=== PATIENT | male | born 1960 | race Caucasian/White ===

== ENCOUNTER 2021-01-13 11:47 | Inpatient (IN) | payer OTHER ==
[~2021-01-13] VITALS: Ht 185.4 cm; Wt 101.0 kg
--- NOTE | 2021-01-13 11:47 | NUR ---
pt arived via [facility]. pt 60y/o male c/o cp that started last night. pt on BVM at 15L and placed on monitor, and Defib. Pt spontaneous VFib and shocked at 200J. Iv started x2 and IO in place.
--- NOTE | 2021-01-13 11:50 | NUR ---
See code sheet for medications and Intubation. Pt had mx episodes of VT and Vfib. pt labs drawn and EKG completed. Dr kerr intubated with 8.0 ET tube at 24cm at lip. ETCO2 confirmed. 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 Pharmacy at beside to dose medications per MD order.
[2021-01-13] MEDS ORDERED: HEPARIN 5,000 UNITS/ML, 1ML ONE (11:55)
[2021-01-13] MEDS ORDERED: HEPARIN 25,000 UNITS/250ML PMX 250 ML ONE (11:56)
[2021-01-13] MEDS ORDERED: FENTANYL PF 100 MCG/2ML ONE (12:03)
[2021-01-13] MEDS ORDERED: MIDAZOLAM 1 MG/ML, 5ML ONE (12:03)
[2021-01-13] MEDS ORDERED: BIVALIRUDIN 250 MG ONE ×2 (12:04→13:13)
[2021-01-13] MEDS ORDERED: LIDOCAINE 2%, 20ML ONE (12:04)
[2021-01-13] MEDS ORDERED: HEPARIN 1,000 UNITS/ML, 10ML ONE (12:04)
[2021-01-13 12:11] LABS: BASOPHILS % (AUTO) 1 % (0-1); EOSINOPHILS % (AUTO) 2 % (1-7); LYMPHOCYTES % (AUTO) 29 % (22-44); MEAN CORPUSCULAR HEMOGLOBIN 31.1 pg (27.5-34.5); MEAN CORPUSCULAR HGB CONC 33.9 g/dL (33.2-36.2); MEAN PLATELET VOLUME 9.1 fL (7.4-10.4); MONOCYTES % (AUTO) 9 % (2-9); NEUTROPHILS % (AUTO) 60 % (42-75); PLATELET COUNT 252 x10^3/uL (130-400); RED BLOOD COUNT 5.48 x10^6/uL (4.38-5.82); RED CELL DISTRIBUTION WIDTH 13.9 % (9.4-14.8)
--- NOTE | 2021-01-13 12:20 | NUR ---
Pt transported to cathlab on transport vent and monitor. pt last VS 136/103
--- NOTE | 2021-01-13 12:20 | NUR ---
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
[2021-01-13 12:23] LABS: INTERNATIONAL NORMALIZED RATIO 1.02 (0.93-1.1); PARTIAL THROMBOPLASTIN TIME 25 Seconds (25-31); PROTHROMBIN TIME 10.9 Seconds (9.6-11.5)
[2021-01-13] MEDS ORDERED: POTASSIUM CHLORIDE 40 MEQ in SODIUM CHLORIDE 0.9% 100 ML IV ONE (12:25)
[2021-01-13 12:29] LABS: TROPONIN I 0.121 ng/mL (0.000-0.045)
[2021-01-13] MEDS ORDERED: ETOMIDATE 40 MG/20 ML IVPush ONE (12:30)
[2021-01-13] MEDS ORDERED: AMIODARONE 50 MG/ML, 3ML IVPush ONE (12:30)
[2021-01-13] MEDS ORDERED: MAGNESIUM SULFATE 1 GM/2 ML IVPush ONE (12:30)
[2021-01-13] MEDS ORDERED: VECURONIUM 10 MG IVPush ONE (12:30)
[2021-01-13] MEDS ORDERED: AMIODARONE 450 MG in DEXTROSE 5% 241 ML IV PRN ×2 (12:30→13:30)
[2021-01-13] MEDS ORDERED: PROPOFOL 100 ML IV PRN (12:30)
[2021-01-13] MEDS ORDERED: PLEASE ENTER HEIGHT AND WEIGHT MC SCH (12:30)
[2021-01-13] MEDS ORDERED: AMIODARONE 50 MG/ML, 3ML ONE ×2 (12:55→13:24)
[2021-01-13] MEDS ORDERED: POTASSIUM CHLORIDE 40 MEQ in SODIUM CHLORIDE 0.9% 500 ML IV ONE (13:00)
[2021-01-13] MEDS ORDERED: AMIODARONE 150 MG in DEXTROSE 5% 100 ML IV ONE (13:00)
[2021-01-13] MEDS ORDERED: VECURONIUM 10 MG ONE (13:24)
[2021-01-13] MEDS ORDERED: PROPOFOL 10 MG/ML, 20ML ONE (13:24)
[2021-01-13] MEDS ORDERED: MAGNESIUM SULFATE 1 GM/2 ML ONE (13:24)
[2021-01-13] MEDS ORDERED: DEXTROSE 5%, 500ML ONE (13:24)
[2021-01-13] MEDS ORDERED: ETOMIDATE 20 MG/10 ML ONE (13:24)
[2021-01-13] MEDS ORDERED: LIDOCAINE PF 2%, 5ML ONE (13:24)
[2021-01-13] MEDS ORDERED: PHENYLEPHRINE 10 MG/ML ONE ×2 (13:27→13:47)
[2021-01-13] MEDS ORDERED: ENALAPRILAT 1.25 MG/ML, 2ML IVPush PRN (13:30)
[2021-01-13] MEDS ORDERED: NOREPINEPHRINE 8 MG in SODIUM CHLORIDE 0.9% 242 ML IV PRN (13:30)
[2021-01-13] MEDS ORDERED: PRASUGREL 10 MG TABLET PO SCH (13:30)
[2021-01-13] MEDS ORDERED: morphine SULFATE 10 MG/ML, 1ML IVPush PRN (13:30)
[2021-01-13] MEDS ORDERED: FENTANYL PF 1,000 MCG in SODIUM CHLORIDE 0.9% 80 ML IV PRN (13:30)
[2021-01-13] MEDS ORDERED: BISACODYL 10 MG SUPP PR PRN (13:30)
[2021-01-13] MEDS ORDERED: HEPARIN 5,000 UNITS/ML, 1ML IV ONE (13:30)
[2021-01-13] MEDS ORDERED: ONDANSETRON 2MG/ML, 2ML IVPush PRN (13:30)
[2021-01-13] MEDS ORDERED: VECURONIUM 10 MG IVPush PRN (13:30)
[2021-01-13] MEDS ORDERED: SODIUM PHOSPHATE 20 MMOL in SODIUM CHLORIDE 0.9% 250 ML IVPB PRN (13:30)
[2021-01-13] MEDS ORDERED: POLYETHYLENE GLYCOL 17 GM PACKET PO PRN (13:30)
[2021-01-13] MEDS ORDERED: HEPARIN 5,000 UNITS/ML, 1ML IV PRN (13:30)
[2021-01-13] MEDS ORDERED: MAGNESIUM SULFATE 1 GM in DEXTROSE 5% 100 ML IVPB PRN (13:30)
[2021-01-13] MEDS ORDERED: SODIUM CHLORIDE 0.9% 1,000 ML IV SCH (13:30)
[2021-01-13] MEDS ORDERED: LABETALOL 5MG/ML, 20ML IVPush PRN (13:30)
[2021-01-13] MEDS ORDERED: BUSPIRONE 10 MG TABLET NG SCH (13:30)
[2021-01-13] MEDS ORDERED: KSCALE TO 4.0 IV SCH (13:30)
[2021-01-13] MEDS ORDERED: HEPARIN 25,000 UNITS/250ML PMX 250 ML IV PRN (13:30)
[2021-01-13] MEDS ORDERED: ARTIFICIAL TEARS OINT 3.5 GM EACHEYE SCH (13:30)
[2021-01-13] MEDS ORDERED: OXYcodone IR 5MG TABLET PO PRN (13:30)
[2021-01-13] MEDS ORDERED: CALCIUM CHLORIDE 13.6 MEQ in SODIUM CHLORIDE 0.9% 100 ML IVPB PRN (13:30)
[2021-01-13] MEDS ORDERED: MIDAZOLAM 1 MG/ML, 2ML ONE (13:38)
[2021-01-13] MEDS ORDERED: PHENYLEPHRINE 100 MG in SODIUM CHLORIDE 0.9% 240 ML IV PRN ×2 (14:00)
[2021-01-13] MEDS ORDERED: PHENYLEPHRINE 50 MG in SODIUM CHLORIDE 0.9% 245 ML IV PRN (14:00)
[2021-01-13] MEDS: KSCALE TO 4.5 IV SCH ×2 (15:00→21:00)
[2021-01-13] MEDS: BIVALIRUDIN 250 MG in SODIUM CHLORIDE 0.9% 50 ML IV SCH ×2 (15:32→17:10)
[2021-01-13] MEDS ORDERED: PROPOFOL 100 ML IV ONE (15:54)
[2021-01-13 16:11] LABS: ANION GAP 5 mmol/L (5-15); CALCIUM 7.8 mg/dL (8.5-10.1); CHLORIDE 108 mmol/L (98-107); CREATININE 0.96 mg/dL (0.7-1.3)
[2021-01-13] MEDS: POTASSIUM CHLORIDE 40 MEQ in LACTATED RINGERS 1,000 ML IV SCH (16:52)
[2021-01-13] MEDS ORDERED: PARO20TA4 PO (17:36)
[2021-01-13] MEDS ORDERED: LISI-170 PO (17:36)
[2021-01-13] MEDS ORDERED: AMLO-211 PO (17:36)
[2021-01-13] MEDS ORDERED: FLEC50TA25 PO (17:36)
[2021-01-13] MEDS ORDERED: LEVO150T5 PO (17:36)
[2021-01-13] MEDS ORDERED: METO-282 PO (17:36)
[2021-01-13] MEDS ORDERED: RIVA20TA PO (17:36)
[2021-01-13] MEDS ORDERED: ATROPINE SYRINGE 0.1 MG/ML, 10ML ONE (18:00)
[2021-01-13 18:16] VITALS: BP 113/46
[2021-01-13] MEDS ORDERED: BIVALIRUDIN 250 MG in SODIUM CHLORIDE 0.9% 50 ML IV SCH (18:30)
[2021-01-13] MEDS: FENTANYL PF 1,000 MCG in SODIUM CHLORIDE 0.9% 80 ML IV PRN (20:07)
[2021-01-13] MEDS: PROPOFOL 100 ML IV PRN ×2 (20:08→22:40)
[2021-01-13] MEDS: FAMOTIDINE 20 MG/2 ML IVPush SCH (22:41)
[2021-01-13 23:10] LABS: MICROSCOPIC AUTO
[2021-01-14] MEDS: PROPOFOL 100 ML IV PRN ×6 (01:24→20:11)
[2021-01-14] MEDS: DOPAMINE/D5W PMX 250 ML IV PRN ×3 (02:01→16:57)
[2021-01-14] MEDS: KSCALE TO 4.5 IV SCH (03:00)
[2021-01-14 04:20] LABS: BASOPHILS % (AUTO) 0 % (0-1); EOSINOPHILS % (AUTO) 0 % (1-7); LYMPHOCYTES % (AUTO) 10 % (22-44); MEAN CORPUSCULAR HEMOGLOBIN 31.1 pg (27.5-34.5); MEAN CORPUSCULAR HGB CONC 34.3 g/dL (33.2-36.2); MEAN PLATELET VOLUME 9.2 fL (7.4-10.4); MONOCYTES % (AUTO) 10 % (2-9); NEUTROPHILS % (AUTO) 80 % (42-75); PLATELET COUNT 231 x10^3/uL (130-400); RED BLOOD COUNT 5.13 x10^6/uL (4.38-5.82); RED CELL DISTRIBUTION WIDTH 13.8 % (9.4-14.8)
[2021-01-14 04:30] LABS: ALBUMIN 3.1 g/dL (3.4-5.0); ANION GAP 6 mmol/L (5-15); CALCIUM 7.8 mg/dL (8.5-10.1); CHLORIDE 107 mmol/L (98-107)
[2021-01-14 04:50] LABS: ALANINE AMINOTRANSFERASE 84 U/L (12-78); ALKALINE PHOSPHATASE 77 U/L (45-117); BILIRUBIN,TOTAL 0.5 mg/dL (0.2-1.0); CREATININE 1.03 mg/dL (0.7-1.3); TOTAL PROTEIN 7.6 g/dL (6.4-8.2)
[2021-01-14] MEDS: POTASSIUM CHLORIDE 40 MEQ in LACTATED RINGERS 1,000 ML IV SCH (05:56)
[2021-01-14] MEDS: AMPICILLIN/SULBACTAM 3 GM in SODIUM CHLORIDE 0.9% 100 ML IV SCH ×3 (08:17→20:11)
[2021-01-14] MEDS: FENTANYL PF 1,000 MCG in SODIUM CHLORIDE 0.9% 80 ML IV PRN (08:17)
[2021-01-14] MEDS: SENNA/DOCUSATE TABLET PO SCH (08:18)
[2021-01-14] MEDS: PRASUGREL 10 MG TABLET PO SCH (08:18)
[2021-01-14] MEDS: FAMOTIDINE 20 MG/2 ML IVPush SCH ×2 (08:18→20:10)
[2021-01-14] MEDS ORDERED: LEVOTHYROXINE 100 MCG INJ IVPush SCH (09:00)
[2021-01-14] MEDS: LEVOTHYROXINE 100 MCG INJ IVPush SCH (09:29)
[2021-01-14] MEDS: INSULIN LISPRO 100 UNITS/ML, PEN SQ-INSULIN SCH ×3 (09:37→20:15)
--- NOTE | 2021-01-14 11:16 | NUR ---
TF recommendation when needed: Vital HP 55 ml/hr (ON propofol) 65 ml/hr (OFF propofol) Addendum: 01/14/21 at [address] Amended: Links added.
[2021-01-14] MEDS: ACETAMINOPHEN 325 MG TABLET PO PRN (20:33)
[2021-01-15] MEDS: PROPOFOL 100 ML IV PRN ×5 (00:36→20:12)
[2021-01-15] MEDS: AMPICILLIN/SULBACTAM 3 GM in SODIUM CHLORIDE 0.9% 100 ML IV SCH ×4 (02:44→21:51)
[2021-01-15] MEDS: DOPAMINE/D5W PMX 250 ML IV PRN ×2 (02:44→11:15)
[2021-01-15] MEDS: INSULIN LISPRO 100 UNITS/ML, PEN SQ-INSULIN SCH ×4 (03:04→21:30)
[2021-01-15 04:29] LABS: MEAN CORPUSCULAR HEMOGLOBIN 31.2 pg (27.5-34.5); MEAN CORPUSCULAR HGB CONC 34.3 g/dL (33.2-36.2); MEAN PLATELET VOLUME 9.1 fL (7.4-10.4); PLATELET COUNT 178 x10^3/uL (130-400); RED BLOOD COUNT 4.75 x10^6/uL (4.38-5.82)
[2021-01-15 04:33] LABS: ALANINE AMINOTRANSFERASE 77 U/L (12-78); ALBUMIN 2.8 g/dL (3.4-5.0); CALCIUM 8.2 mg/dL (8.5-10.1); CHLORIDE 109 mmol/L (98-107); CREATININE 0.88 mg/dL (0.7-1.3)
[2021-01-15 04:35] LABS: ALKALINE PHOSPHATASE 73 U/L (45-117); BILIRUBIN,TOTAL 0.6 mg/dL (0.2-1.0); TOTAL PROTEIN 7.2 g/dL (6.4-8.2)
[2021-01-15 04:43] LABS: ANION GAP 3 mmol/L (5-15)
[2021-01-15 04:54] LABS: <RBC MORPHOLOGY> NORMAL; BAND#(MANUAL) 0.65 x10^3/uL; BANDS%(MANUAL) 4 % (0-7); LYMPH#(MANUAL) 0.65 x10^3/uL (1-3.4); LYMPHS% (MANUAL) 4 % (22-44); MONOS#(MANUAL) 0.81 x10^3/uL (0.3-2.7); MONOS% (MANUAL) 5 % (2-9); MYELOCYTES# (MANUAL) 0.16 x10^3/uL (0-0); MYELOCYTES% (MANUAL) 1 % (0-0); SEG#(MANUAL) 13.93 x10^3/uL (1.8-6.8); SEGS% (MANUAL) 86 % (42-75)
[2021-01-15 04:55] LABS: <PLATELET ESTIMATE> ADEQUATE; <PLT MORPHOLOGY> NORMAL PLT MORPH; PMNS WITH VACUOLES 1+
[2021-01-15] MEDS ORDERED: ASPIRIN 81 MG TABLET EC PO SCH (06:00)
[2021-01-15] MEDS: FENTANYL PF 1,000 MCG in SODIUM CHLORIDE 0.9% 80 ML IV PRN (07:09)
[2021-01-15] MEDS: LACTATED RINGERS 1,000 ML IV SCH ×2 (08:42→21:52)
[2021-01-15] MEDS: LEVOTHYROXINE 100 MCG INJ IVPush SCH (09:10)
[2021-01-15] MEDS: SENNA/DOCUSATE TABLET PO SCH (09:22)
[2021-01-15] MEDS: ASPIRIN 81 MG TABLET CHEW PO SCH (09:22)
[2021-01-15] MEDS: HEPARIN 5,000 UNITS/ML, 1ML SQ SCH ×2 (09:22→18:15)
[2021-01-15] MEDS: PRASUGREL 10 MG TABLET PO SCH (09:22)
[2021-01-15] MEDS: FAMOTIDINE 20 MG/2 ML IVPush SCH ×2 (09:23→21:51)
[2021-01-15] MEDS: ACETAMINOPHEN 325 MG TABLET PO PRN (21:52)
[2021-01-16] MEDS: HEPARIN 5,000 UNITS/ML, 1ML SQ SCH ×3 (00:47→16:01)
[2021-01-16] MEDS: PROPOFOL 100 ML IV PRN ×7 (00:48→22:24)
[2021-01-16] MEDS: AMPICILLIN/SULBACTAM 3 GM in SODIUM CHLORIDE 0.9% 100 ML IV SCH ×4 (02:56→20:11)
[2021-01-16] MEDS: INSULIN LISPRO 100 UNITS/ML, PEN SQ-INSULIN SCH ×4 (03:00→20:18)
[2021-01-16] MEDS: FENTANYL PF 1,000 MCG in SODIUM CHLORIDE 0.9% 80 ML IV PRN ×2 (05:07→22:22)
[2021-01-16 05:31] LABS: BASOPHILS % (AUTO) 1 % (0-1); EOSINOPHILS % (AUTO) 1 % (1-7); LYMPHOCYTES % (AUTO) 14 % (22-44); MEAN CORPUSCULAR HEMOGLOBIN 31.7 pg (27.5-34.5); MEAN CORPUSCULAR HGB CONC 34.8 g/dL (33.2-36.2); MONOCYTES % (AUTO) 10 % (2-9); NEUTROPHILS % (AUTO) 75 % (42-75); PLATELET COUNT 153 x10^3/uL (130-400); RED BLOOD COUNT 4.24 x10^6/uL (4.38-5.82); RED CELL DISTRIBUTION WIDTH 13.9 % (9.4-14.8)
[2021-01-16 05:34] LABS: ALANINE AMINOTRANSFERASE 52 U/L (12-78); ALBUMIN 2.4 g/dL (3.4-5.0); ANION GAP 2 mmol/L (5-15); CALCIUM 7.7 mg/dL (8.5-10.1); CHLORIDE 109 mmol/L (98-107); CREATININE 0.69 mg/dL (0.7-1.3)
[2021-01-16 05:36] LABS: ALKALINE PHOSPHATASE 66 U/L (45-117); BILIRUBIN,TOTAL 0.6 mg/dL (0.2-1.0); TOTAL PROTEIN 6.7 g/dL (6.4-8.2)
[2021-01-16] MEDS: FAMOTIDINE 20 MG/2 ML IVPush SCH ×2 (09:03→20:12)
[2021-01-16] MEDS: QUETIAPINE 25MG TABLET NG SCH ×2 (09:03→20:12)
[2021-01-16] MEDS: PRASUGREL 10 MG TABLET PO SCH (09:03)
[2021-01-16] MEDS: LEVOTHYROXINE 100 MCG INJ IVPush SCH (09:03)
[2021-01-16] MEDS: SENNA/DOCUSATE TABLET PO SCH (09:03)
[2021-01-16] MEDS: ASPIRIN 81 MG TABLET CHEW PO SCH (09:03)
[2021-01-16] MEDS ORDERED: DEXTROSE 50%, 50ML SYRINGE ONE (15:55)
[2021-01-16] MEDS: LACTATED RINGERS 1,000 ML IV SCH (15:58)
[2021-01-16] MEDS ORDERED: DEXTROSE 50%, 50ML SYRINGE IVPush ONE (16:00)
[2021-01-16] MEDS ORDERED: DEXTROSE 4 GM TAB.CHEW PO PRN (16:30)
[2021-01-16] MEDS ORDERED: DEXTROSE 50%, 50ML SYRINGE IVPush PRN (16:30)
[2021-01-16] MEDS ORDERED: GLUCAGON 1 MG IM PRN (16:30)
[2021-01-16] MEDS: D5%-LACTATED RINGERS 1,000 ML IV SCH (17:56)
[2021-01-16] MEDS: SODIUM CHLORIDE FLUSH 10ML SYR IVF SCH (20:12)
[2021-01-17] MEDS: HEPARIN 5,000 UNITS/ML, 1ML SQ SCH ×3 (00:35→16:28)
[2021-01-17] MEDS: PROPOFOL 100 ML IV PRN ×6 (02:00→18:51)
[2021-01-17] MEDS: AMPICILLIN/SULBACTAM 3 GM in SODIUM CHLORIDE 0.9% 100 ML IV SCH ×4 (03:22→21:07)
[2021-01-17] MEDS: INSULIN LISPRO 100 UNITS/ML, PEN SQ-INSULIN SCH ×4 (03:29→21:30)
[2021-01-17 05:16] LABS: BASOPHILS % (AUTO) 1 % (0-1); EOSINOPHILS % (AUTO) 2 % (1-7); LYMPHOCYTES % (AUTO) 17 % (22-44); MEAN CORPUSCULAR HEMOGLOBIN 31.1 pg (27.5-34.5); MEAN CORPUSCULAR HGB CONC 34.1 g/dL (33.2-36.2); MONOCYTES % (AUTO) 9 % (2-9); NEUTROPHILS % (AUTO) 71 % (42-75); PLATELET COUNT 158 x10^3/uL (130-400); RED BLOOD COUNT 4.17 x10^6/uL (4.38-5.82)
[2021-01-17 05:26] LABS: ALBUMIN 2.1 g/dL (3.4-5.0); ANION GAP 5 mmol/L (5-15); CALCIUM 7.8 mg/dL (8.5-10.1); CHLORIDE 107 mmol/L (98-107)
[2021-01-17 05:29] LABS: ALANINE AMINOTRANSFERASE 45 U/L (12-78); ALKALINE PHOSPHATASE 72 U/L (45-117); BILIRUBIN,TOTAL 0.4 mg/dL (0.2-1.0); CREATININE 0.61 mg/dL (0.7-1.3); TOTAL PROTEIN 6.6 g/dL (6.4-8.2)
[2021-01-17] MEDS: D5%-LACTATED RINGERS 1,000 ML IV SCH ×2 (06:09→19:38)
[2021-01-17] MEDS ORDERED: POTASSIUM CHLORIDE 20 MEQ PACKET PO ONE (06:30)
[2021-01-17] MEDS: FAMOTIDINE 20 MG/2 ML IVPush SCH ×2 (08:46→21:07)
[2021-01-17] MEDS: LEVOTHYROXINE 100 MCG INJ IVPush SCH (08:46)
[2021-01-17] MEDS: QUETIAPINE 25MG TABLET NG SCH ×2 (08:46→21:08)
[2021-01-17] MEDS: PRASUGREL 10 MG TABLET PO SCH (08:46)
[2021-01-17] MEDS: SENNA/DOCUSATE TABLET PO SCH (08:46)
[2021-01-17] MEDS: SODIUM CHLORIDE FLUSH 10ML SYR IVF SCH ×2 (08:47→21:07)
--- NOTE | 2021-01-17 09:54 | NUR ---
Tube feeds: Vital HP: goal: 55 ml/hr on propofol, 65 ml/hr off propofol Addendum: 01/17/21 at [address] Amended: Links added.
[2021-01-17] MEDS: FENTANYL PF 1,000 MCG in SODIUM CHLORIDE 0.9% 80 ML IV PRN (12:29)
[2021-01-18] MEDS: HEPARIN 5,000 UNITS/ML, 1ML SQ SCH ×2 (00:05→09:05)
[2021-01-18] MEDS: PROPOFOL 100 ML IV PRN ×5 (00:06→21:01)
[2021-01-18] MEDS: AMPICILLIN/SULBACTAM 3 GM in SODIUM CHLORIDE 0.9% 100 ML IV SCH ×4 (02:00→21:04)
[2021-01-18] MEDS: INSULIN LISPRO 100 UNITS/ML, PEN SQ-INSULIN SCH ×4 (02:29→21:30)
[2021-01-18] MEDS: FENTANYL PF 1,000 MCG in SODIUM CHLORIDE 0.9% 80 ML IV PRN ×2 (04:04→20:59)
[2021-01-18 06:35] LABS: BASOPHILS % (AUTO) 1 % (0-1); EOSINOPHILS % (AUTO) 3 % (1-7); LYMPHOCYTES % (AUTO) 15 % (22-44); MEAN CORPUSCULAR HEMOGLOBIN 31.3 pg (27.5-34.5); MEAN CORPUSCULAR HGB CONC 34.3 g/dL (33.2-36.2); MEAN PLATELET VOLUME 8.8 fL (7.4-10.4); MONOCYTES % (AUTO) 12 % (2-9); NEUTROPHILS % (AUTO) 70 % (42-75); PLATELET COUNT 173 x10^3/uL (130-400); RED CELL DISTRIBUTION WIDTH 13.9 % (9.4-14.8)
[2021-01-18 06:51] LABS: ANION GAP 6 mmol/L (5-15); CALCIUM 8.2 mg/dL (8.5-10.1); CHLORIDE 108 mmol/L (98-107)
[2021-01-18 06:55] LABS: ALANINE AMINOTRANSFERASE 43 U/L (12-78); ALKALINE PHOSPHATASE 99 U/L (45-117); BILIRUBIN,TOTAL 0.5 mg/dL (0.2-1.0); CREATININE 0.71 mg/dL (0.7-1.3); TOTAL PROTEIN 6.5 g/dL (6.4-8.2)
[2021-01-18] MEDS ORDERED: POTASSIUM CHLORIDE 20 MEQ PACKET PO ONE (08:00)
[2021-01-18] MEDS: QUETIAPINE 25MG TABLET NG SCH ×2 (09:05→19:51)
[2021-01-18] MEDS: ASPIRIN 81 MG TABLET CHEW PO SCH (09:05)
[2021-01-18] MEDS: FAMOTIDINE 20 MG/2 ML IVPush SCH ×2 (09:05→19:50)
[2021-01-18] MEDS: SENNA/DOCUSATE TABLET PO SCH (09:05)
[2021-01-18] MEDS: PRASUGREL 10 MG TABLET PO SCH (09:05)
[2021-01-18] MEDS: LEVOTHYROXINE 100 MCG INJ IVPush SCH (09:06)
[2021-01-18] MEDS: SODIUM CHLORIDE FLUSH 10ML SYR IVF SCH ×2 (09:07→19:51)
[2021-01-18] MEDS: ENOXAPARIN 120MG/0.8ML SQ SCH (15:07)
[2021-01-18] MEDS ORDERED: LACTULOSE 20 GM/30 ML UDC PO ONE (15:30)
[2021-01-18] MEDS: ACETAMINOPHEN 325 MG TABLET PO PRN (17:13)
[2021-01-18] MEDS: AMLODIPINE 5 MG TABLET PO SCH (18:18)
[2021-01-19] MEDS: AMPICILLIN/SULBACTAM 3 GM in SODIUM CHLORIDE 0.9% 100 ML IV SCH ×4 (02:35→20:58)
[2021-01-19] MEDS: ENOXAPARIN 120MG/0.8ML SQ SCH ×2 (02:36→14:32)
[2021-01-19] MEDS: INSULIN LISPRO 100 UNITS/ML, PEN SQ-INSULIN SCH ×4 (03:30→22:00)
[2021-01-19 04:10] LABS: BASOPHILS % (AUTO) 1 % (0-1); EOSINOPHILS % (AUTO) 2 % (1-7); LYMPHOCYTES % (AUTO) 16 % (22-44); MEAN CORPUSCULAR HEMOGLOBIN 31.5 pg (27.5-34.5); MEAN CORPUSCULAR HGB CONC 34.4 g/dL (33.2-36.2); MEAN PLATELET VOLUME 8.7 fL (7.4-10.4); MONOCYTES % (AUTO) 10 % (2-9); NEUTROPHILS % (AUTO) 70 % (42-75); PLATELET COUNT 184 x10^3/uL (130-400); RED BLOOD COUNT 4.22 x10^6/uL (4.38-5.82); RED CELL DISTRIBUTION WIDTH 13.8 % (9.4-14.8)
[2021-01-19 04:15] LABS: CREATININE 0.73 mg/dL (0.7-1.3)
[2021-01-19 04:26] LABS: ANION GAP 5 mmol/L (5-15); CHLORIDE 109 mmol/L (98-107)
[2021-01-19] MEDS: FENTANYL PF 1,000 MCG in SODIUM CHLORIDE 0.9% 80 ML IV PRN ×2 (04:57→14:27)
[2021-01-19] MEDS: PROPOFOL 100 ML IV PRN ×4 (04:57→23:39)
[2021-01-19] MEDS: SODIUM CHLORIDE FLUSH 10ML SYR IVF SCH ×2 (09:00→20:58)
[2021-01-19] MEDS ORDERED: LISINOPRIL 10 MG TABLET ONE (09:18)
[2021-01-19] MEDS: LEVOTHYROXINE 100 MCG INJ IVPush SCH (09:23)
[2021-01-19] MEDS: PRASUGREL 10 MG TABLET PO SCH (09:23)
[2021-01-19] MEDS: AMLODIPINE 5 MG TABLET PO SCH (09:24)
[2021-01-19] MEDS: QUETIAPINE 25MG TABLET NG SCH ×2 (09:26→20:57)
[2021-01-19] MEDS: SENNA/DOCUSATE TABLET PO SCH (09:27)
[2021-01-19] MEDS: LISINOPRIL 20 MG TABLET PO SCH (09:27)
[2021-01-19] MEDS: ASPIRIN 81 MG TABLET CHEW PO SCH (09:53)
[2021-01-19] MEDS: FAMOTIDINE 20 MG/2 ML IVPush SCH ×2 (09:53→20:57)
[2021-01-20] MEDS: FENTANYL PF 1,000 MCG in SODIUM CHLORIDE 0.9% 80 ML IV PRN ×2 (02:56→12:55)
[2021-01-20] MEDS: AMPICILLIN/SULBACTAM 3 GM in SODIUM CHLORIDE 0.9% 100 ML IV SCH ×2 (03:38→10:47)
[2021-01-20] MEDS: ENOXAPARIN 120MG/0.8ML SQ SCH ×2 (03:38→14:37)
[2021-01-20] MEDS: INSULIN LISPRO 100 UNITS/ML, PEN SQ-INSULIN SCH (03:47)
[2021-01-20 03:59] LABS: BASOPHILS % (AUTO) 0 % (0-1); EOSINOPHILS % (AUTO) 3 % (1-7); LYMPHOCYTES % (AUTO) 16 % (22-44); MEAN CORPUSCULAR HEMOGLOBIN 31.1 pg (27.5-34.5); MEAN CORPUSCULAR HGB CONC 33.9 g/dL (33.2-36.2); MEAN PLATELET VOLUME 8.7 fL (7.4-10.4); MONOCYTES % (AUTO) 12 % (2-9); NEUTROPHILS % (AUTO) 69 % (42-75); PLATELET COUNT 203 x10^3/uL (130-400)
[2021-01-20 04:10] LABS: ANION GAP 5 mmol/L (5-15); CALCIUM 7.9 mg/dL (8.5-10.1); CHLORIDE 110 mmol/L (98-107); CREATININE 0.73 mg/dL (0.7-1.3)
[2021-01-20] MEDS ORDERED: POTASSIUM CHLORIDE 20 MEQ PACKET PO ONE (06:30)
[2021-01-20] MEDS ORDERED: FUROSEMIDE 40 MG/4 ML IV ONE (06:30)
[2021-01-20] MEDS: PROPOFOL 100 ML IV PRN ×3 (07:02→23:01)
[2021-01-20] MEDS ORDERED: SENNA/DOCUSATE TABLET PO PRN (08:30)
[2021-01-20] MEDS: LISINOPRIL 20 MG TABLET PO SCH (09:52)
[2021-01-20] MEDS: AMLODIPINE 5 MG TABLET PO SCH (09:52)
[2021-01-20] MEDS: PRASUGREL 10 MG TABLET PO SCH (09:52)
[2021-01-20] MEDS: SODIUM CHLORIDE FLUSH 10ML SYR IVF SCH ×3 (09:52→20:07)
[2021-01-20] MEDS: LEVOTHYROXINE 100 MCG INJ IVPush SCH (09:52)
[2021-01-20] MEDS: QUETIAPINE 25MG TABLET NG SCH ×2 (09:52→20:07)
[2021-01-20] MEDS: ASPIRIN 81 MG TABLET CHEW PO SCH (09:52)
[2021-01-20] MEDS: FAMOTIDINE 20 MG/2 ML IVPush SCH ×2 (09:53→20:07)
[2021-01-20] MEDS ORDERED: LINEZOLID PMX 600MG/300ML 300 ML IV SCH (12:00)
[2021-01-20] MEDS: CEFTAROLINE 600 MG in SODIUM CHLORIDE 0.9% 100 ML IV SCH (12:54)
[2021-01-20] MEDS ORDERED: GLUCAGON 1 MG IM PRN (14:30)
[2021-01-20] MEDS ORDERED: DEXTROSE 4 GM TAB.CHEW PO PRN (14:30)
[2021-01-20] MEDS ORDERED: DEXTROSE 50%, 50ML SYRINGE IVPush PRN (14:30)
[2021-01-21] MEDS: CEFTAROLINE 600 MG in SODIUM CHLORIDE 0.9% 100 ML IV SCH ×2 (00:24→14:50)
[2021-01-21] MEDS: ENOXAPARIN 120MG/0.8ML SQ SCH ×2 (03:00→14:52)
[2021-01-21] MEDS: PROPOFOL 100 ML IV PRN (03:31)
[2021-01-21 04:20] LABS: BASOPHILS % (AUTO) 1 % (0-1); EOSINOPHILS % (AUTO) 2 % (1-7); LYMPHOCYTES % (AUTO) 17 % (22-44); MEAN CORPUSCULAR HEMOGLOBIN 30.9 pg (27.5-34.5); MEAN CORPUSCULAR HGB CONC 33.9 g/dL (33.2-36.2); MEAN PLATELET VOLUME 8.2 fL (7.4-10.4); MONOCYTES % (AUTO) 12 % (2-9); NEUTROPHILS % (AUTO) 68 % (42-75); PLATELET COUNT 255 x10^3/uL (130-400); RED BLOOD COUNT 4.27 x10^6/uL (4.38-5.82); RED CELL DISTRIBUTION WIDTH 14.1 % (9.4-14.8)
[2021-01-21 04:35] LABS: ANION GAP 7 mmol/L (5-15); CALCIUM 7.8 mg/dL (8.5-10.1); CHLORIDE 109 mmol/L (98-107); CREATININE 0.85 mg/dL (0.7-1.3)
[2021-01-21] MEDS: FAMOTIDINE 20 MG/2 ML IVPush SCH ×2 (07:53→20:58)
[2021-01-21] MEDS: PRASUGREL 10 MG TABLET PO SCH (07:53)
[2021-01-21] MEDS: LEVOTHYROXINE 100 MCG INJ IVPush SCH (07:53)
[2021-01-21] MEDS: SODIUM CHLORIDE FLUSH 10ML SYR IVF SCH ×4 (07:53→21:00)
[2021-01-21] MEDS: ASPIRIN 81 MG TABLET CHEW PO SCH (07:53)
[2021-01-21] MEDS: QUETIAPINE 25MG TABLET NG SCH (07:54)
[2021-01-21] MEDS: LISINOPRIL 20 MG TABLET PO SCH (07:54)
[2021-01-21] MEDS: AMLODIPINE 5 MG TABLET PO SCH (07:54)
[2021-01-21] MEDS ORDERED: CARVEDILOL 6.25 MG TABLET PO SCH (08:48)
[2021-01-21] MEDS ORDERED: METOPROLOL 1 MG/ML, 5ML IVPush PRN (09:00)
[2021-01-21] MEDS: ALBUTEROL/IPRATROPIUM 2.5MG/0.5MG, 3 ML NPPB SCH ×2 (13:30→19:07)
[2021-01-21] MEDS: LORazepam 2 MG/ML, 1ML IVPush PRN (23:34)
[2021-01-22] MEDS: CEFTAROLINE 600 MG in SODIUM CHLORIDE 0.9% 100 ML IV SCH (01:06)
[2021-01-22] MEDS: ENOXAPARIN 120MG/0.8ML SQ SCH ×2 (02:52→15:23)
[2021-01-22 03:57] LABS: ANION GAP 8 mmol/L (5-15); CALCIUM 7.7 mg/dL (8.5-10.1); CHLORIDE 111 mmol/L (98-107)
[2021-01-22 03:58] LABS: CREATININE 0.87 mg/dL (0.7-1.3)
[2021-01-22 04:20] LABS: BASOPHILS % (AUTO) 1 % (0-1); EOSINOPHILS % (AUTO) 3 % (1-7); LYMPHOCYTES % (AUTO) 17 % (22-44); MEAN CORPUSCULAR HEMOGLOBIN 31.5 pg (27.5-34.5); MEAN CORPUSCULAR HGB CONC 34.7 g/dL (33.2-36.2); MEAN PLATELET VOLUME 9.4 fL (7.4-10.4); MONOCYTES % (AUTO) 12 % (2-9); NEUTROPHILS % (AUTO) 67 % (42-75); PLATELET COUNT 205 x10^3/uL (130-400); RED CELL DISTRIBUTION WIDTH 13.6 % (9.4-14.8)
[2021-01-22] MEDS: ALBUTEROL/IPRATROPIUM 2.5MG/0.5MG, 3 ML NPPB SCH ×4 (07:35→19:36)
[2021-01-22] MEDS: ASPIRIN 81 MG TABLET CHEW PO SCH (08:15)
[2021-01-22] MEDS: LISINOPRIL 20 MG TABLET PO SCH (08:15)
[2021-01-22] MEDS: LEVOTHYROXINE 100 MCG INJ IVPush SCH (08:16)
[2021-01-22] MEDS: FAMOTIDINE 20 MG/2 ML IVPush SCH ×2 (08:16→20:42)
[2021-01-22] MEDS: PRASUGREL 10 MG TABLET PO SCH (08:16)
[2021-01-22] MEDS: AMLODIPINE 5 MG TABLET PO SCH (08:16)
[2021-01-22] MEDS: SODIUM CHLORIDE FLUSH 10ML SYR IVF SCH ×4 (08:17→20:43)
[2021-01-22] MEDS ORDERED: CEFAZOLIN 2,000 MG in SODIUM CHLORIDE 0.9% 50 ML IV SCH (08:30)
[2021-01-22] MEDS: CEFAZOLIN PMX 2GM/50ML 50 ML IVPB SCH ×2 (11:30→17:00)
[2021-01-22 20:36] VITALS: BP 149/78
[2021-01-23 00:36] VITALS: BP 162/92
[2021-01-23] MEDS: CEFAZOLIN PMX 2GM/50ML 50 ML IVPB SCH ×3 (01:17→17:29)
[2021-01-23 01:18] VITALS: BP 132/76
[2021-01-23] MEDS: ENOXAPARIN 120MG/0.8ML SQ SCH ×2 (03:50→14:58)
[2021-01-23 06:04] LABS: BASOPHILS % (AUTO) 1 % (0-1); EOSINOPHILS % (AUTO) 2 % (1-7); LYMPHOCYTES % (AUTO) 17 % (22-44); MEAN CORPUSCULAR HEMOGLOBIN 30.6 pg (27.5-34.5); MEAN CORPUSCULAR HGB CONC 33.7 g/dL (33.2-36.2); MEAN PLATELET VOLUME 8.8 fL (7.4-10.4); MONOCYTES % (AUTO) 10 % (2-9); NEUTROPHILS % (AUTO) 70 % (42-75); PLATELET COUNT 301 x10^3/uL (130-400); RED BLOOD COUNT 4.63 x10^6/uL (4.38-5.82); RED CELL DISTRIBUTION WIDTH 13.6 % (9.4-14.8)
[2021-01-23] MEDS: LORazepam 2 MG/ML, 1ML IVPush PRN (06:39)
[2021-01-23] MEDS: ALBUTEROL/IPRATROPIUM 2.5MG/0.5MG, 3 ML NPPB SCH ×4 (07:35→20:10)
[2021-01-23 08:15] VITALS: BP 147/87
[2021-01-23] MEDS: SODIUM CHLORIDE FLUSH 10ML SYR IVF SCH ×4 (08:20→21:56)
[2021-01-23] MEDS: FAMOTIDINE 20 MG/2 ML IVPush SCH ×2 (08:20→21:55)
[2021-01-23] MEDS: ASPIRIN 81 MG TABLET CHEW PO SCH (08:20)
[2021-01-23] MEDS: LEVOTHYROXINE 100 MCG INJ IVPush SCH (08:20)
[2021-01-23] MEDS: LISINOPRIL 20 MG TABLET PO SCH (08:21)
[2021-01-23] MEDS: AMLODIPINE 5 MG TABLET PO SCH (08:21)
[2021-01-23] MEDS: PRASUGREL 10 MG TABLET PO SCH (08:21)
[2021-01-23 14:15] VITALS: BP 152/97
[2021-01-23 19:38] VITALS: BP 148/81
[2021-01-24 01:11] VITALS: BP 144/78
[2021-01-24] MEDS: CEFAZOLIN PMX 2GM/50ML 50 ML IVPB SCH ×3 (01:15→17:11)
[2021-01-24] MEDS: ENOXAPARIN 120MG/0.8ML SQ SCH (05:20)
[2021-01-24] MEDS: ALBUTEROL/IPRATROPIUM 2.5MG/0.5MG, 3 ML NPPB SCH ×2 (06:43→11:00)
[2021-01-24 07:19] VITALS: BP 151/80
[2021-01-24] MEDS: FAMOTIDINE 20 MG/2 ML IVPush SCH (08:00)
[2021-01-24] MEDS: LEVOTHYROXINE 100 MCG INJ IVPush SCH (08:01)
[2021-01-24] MEDS: AMLODIPINE 5 MG TABLET PO SCH (08:01)
[2021-01-24] MEDS: LISINOPRIL 20 MG TABLET PO SCH (08:01)
[2021-01-24] MEDS: PRASUGREL 10 MG TABLET PO SCH (08:01)
[2021-01-24] MEDS: ASPIRIN 81 MG TABLET CHEW PO SCH (08:01)
[2021-01-24] MEDS: SODIUM CHLORIDE FLUSH 10ML SYR IVF SCH ×4 (08:02→21:32)
[2021-01-24] MEDS ORDERED: ALBUTEROL/IPRATROPIUM 2.5MG/0.5MG, 3 ML NPPB PRN (11:30)
[2021-01-24 13:52] VITALS: BP 135/82
[2021-01-24] MEDS: ENOXAPARIN 100 MG/ML SQ SCH (17:11)
[2021-01-24 17:13] VITALS: BP 155/83
[2021-01-24 19:02] VITALS: BP 142/78
[2021-01-25 00:34] VITALS: BP 126/77
[2021-01-25] MEDS: DILTIAZEM 5 MG/ML, 5ML IVPush PRN ×2 (01:20→01:42)
[2021-01-25] MEDS: CEFAZOLIN PMX 2GM/50ML 50 ML IVPB SCH ×3 (02:12→16:32)
[2021-01-25] MEDS: ENOXAPARIN 100 MG/ML SQ SCH (06:01)
[2021-01-25] MEDS: SODIUM CHLORIDE FLUSH 10ML SYR IVF SCH ×4 (09:00→21:32)
[2021-01-25] MEDS: LISINOPRIL 20 MG TABLET PO SCH (09:11)
[2021-01-25] MEDS: ASPIRIN 81 MG TABLET CHEW PO SCH (09:11)
[2021-01-25] MEDS: LEVOTHYROXINE 100 MCG INJ IVPush SCH (09:11)
[2021-01-25] MEDS: AMLODIPINE 5 MG TABLET PO SCH (09:11)
[2021-01-25] MEDS: PRASUGREL 10 MG TABLET PO SCH (09:11)
[2021-01-25 09:16] VITALS: BP 117/82
[2021-01-25 09:30] LABS: ANION GAP 9 mmol/L (5-15); CALCIUM 8.1 mg/dL (8.5-10.1); CHLORIDE 109 mmol/L (98-107); CREATININE 0.83 mg/dL (0.7-1.3)
[2021-01-25 14:13] VITALS: BP 131/77
[2021-01-25] MEDS: RIVAROXABAN 20 MG TABLET PO SCH (16:32)
[2021-01-25] MEDS: POTASSIUM CHLORIDE 20 MEQ TAB.ER.PRT PO SCH (16:32)
[2021-01-25 20:03] VITALS: BP 145/81
[2021-01-26 00:17] VITALS: BP 152/82
[2021-01-26] MEDS: CEFAZOLIN PMX 2GM/50ML 50 ML IVPB SCH ×3 (01:31→18:00)
[2021-01-26 01:49] LABS: ANION GAP 9 mmol/L (5-15); CALCIUM 7.5 mg/dL (8.5-10.1); CHLORIDE 106 mmol/L (98-107)
[2021-01-26] MEDS ORDERED: POTASSIUM CHLORIDE 40 MEQ in SODIUM CHLORIDE 0.9% 500 ML IV ONE (02:30)
[2021-01-26] MEDS ORDERED: POTASSIUM CHLORIDE 20 MEQ TAB.ER.PRT PO ONE ×2 (02:30→20:00)
[2021-01-26 07:20] VITALS: BP 138/76
[2021-01-26] MEDS: SODIUM CHLORIDE FLUSH 10ML SYR IVF SCH ×4 (09:00→20:57)
[2021-01-26] MEDS: LEVOTHYROXINE 100 MCG INJ IVPush SCH ×2 (09:00→10:27)
[2021-01-26] MEDS: POTASSIUM CHLORIDE 20 MEQ TAB.ER.PRT PO SCH (09:14)
[2021-01-26] MEDS: LISINOPRIL 20 MG TABLET PO SCH (09:15)
[2021-01-26] MEDS: ASPIRIN 81 MG TABLET CHEW PO SCH (09:15)
[2021-01-26] MEDS: PRASUGREL 10 MG TABLET PO SCH (09:15)
[2021-01-26] MEDS: AMLODIPINE 5 MG TABLET PO SCH (09:15)
[2021-01-26 15:14] LABS: ANION GAP 8 mmol/L (5-15); CALCIUM 8.3 mg/dL (8.5-10.1); CHLORIDE 109 mmol/L (98-107); CREATININE 0.94 mg/dL (0.7-1.3)
[2021-01-26 16:39] VITALS: BP 139/83
[2021-01-26] MEDS: RIVAROXABAN 20 MG TABLET PO SCH (17:59)
[2021-01-26 20:53] VITALS: BP 138/84
[2021-01-26] MEDS: METOPROLOL SUCCINATE 25 MG TAB.ER.24H PO SCH (20:57)
[2021-01-27 02:34] VITALS: BP 147/85
[2021-01-27] MEDS: CEFAZOLIN PMX 2GM/50ML 50 ML IVPB SCH (02:34)
[2021-01-27 06:32] LABS: CHLORIDE 105 mmol/L (98-107)
[2021-01-27 06:43] LABS: ANION GAP 9 mmol/L (5-15); CALCIUM 8.6 mg/dL (8.5-10.1); CREATININE 0.94 mg/dL (0.7-1.3)
[2021-01-27] MEDS ORDERED: POTASSIUM CHLORIDE 20 MEQ TAB.ER.PRT PO ONE (07:30)
[2021-01-27 07:48] VITALS: BP 138/87
[2021-01-27] MEDS: AMLODIPINE 5 MG TABLET PO SCH (08:21)
[2021-01-27] MEDS: ASPIRIN 81 MG TABLET CHEW PO SCH (08:21)
[2021-01-27] MEDS: LISINOPRIL 20 MG TABLET PO SCH (08:21)
[2021-01-27] MEDS: METOPROLOL SUCCINATE 25 MG TAB.ER.24H PO SCH (08:21)
[2021-01-27] MEDS: PRASUGREL 10 MG TABLET PO SCH (08:22)
[2021-01-27] MEDS: LEVOTHYROXINE 100 MCG INJ IVPush SCH (08:26)
[2021-01-27] MEDS: SODIUM CHLORIDE FLUSH 10ML SYR IVF SCH ×2 (09:00)
[2021-01-27] MEDS ORDERED: AMOXICILLIN/CLAV 500-125MG TABLET PO SCH (11:00)
[2021-01-27] MEDS ORDERED: PRAS10TA4 PO (12:04)
[2021-01-27] MEDS ORDERED: HYDR-3342 PO (12:04)
[2021-01-27] MEDS ORDERED: AMOX-367 PO (12:04)
[2021-01-27] MEDS ORDERED: METO25TA91 PO (12:04)
== END 2021-01-27 13:00 | disposition home or self-care (01) | DRG 246 ==
LOC: ED 13:15 → EDIP 13:20 → CCU 13:42 → 5SO 01-22 09:11
PROVIDERS: ADMIT Internal Medicine Cardiovascular Disease; ATTEND Internal Medicine
PROC: 5A1955Z Respiratory Ventilation, Greater than 96 Consecutive Hours (ICD-10-PCS; principal; 2021-01-13)
PROC: 027035Z Dilation of Coronary Artery, One Artery with Two Drug-eluting Intraluminal Devices, Percutaneous Approach (ICD-10-PCS; 2021-01-13)
PROC: 0BH17EZ Insertion of Endotracheal Airway into Trachea, Via Natural or Artificial Opening (ICD-10-PCS; 2021-01-13)
PROC: 0T9B70Z Drainage of Bladder with Drainage Device, Via Natural or Artificial Opening (ICD-10-PCS; 2021-01-13)
PROC: 02HV33Z Insertion of Infusion Device into Superior Vena Cava, Percutaneous Approach (ICD-10-PCS; 2021-01-13)
PROC: 5A2204Z Restoration of Cardiac Rhythm, Single (ICD-10-PCS; 2021-01-13)
PROC: 4A023N7 Measurement of Cardiac Sampling and Pressure, Left Heart, Percutaneous Approach (ICD-10-PCS; 2021-01-13)
PROC: B2111ZZ Fluoroscopy of Multiple Coronary Arteries using Low Osmolar Contrast (ICD-10-PCS; 2021-01-13)
PROC: B2151ZZ Fluoroscopy of Left Heart using Low Osmolar Contrast (ICD-10-PCS; 2021-01-13)
PROC: B543ZZA Ultrasonography of Right Jugular Veins, Guidance (ICD-10-PCS; 2021-01-13)
DX: I21.19 ST elevation (STEMI) myocardial infarction involving other coronary artery of inferior wall (principal); I46.2 Cardiac arrest due to underlying cardiac condition; I49.01 Ventricular fibrillation; I50.43 Acute on chronic combined systolic (congestive) and diastolic (congestive) heart failure; J15.211 Pneumonia due to Methicillin susceptible Staphylococcus aureus; J69.0 Pneumonitis due to inhalation of food and vomit; J96.01 Acute respiratory failure with hypoxia; R57.0 Cardiogenic shock; C18.9 Malignant neoplasm of colon, unspecified; I47.1 Supraventricular tachycardia; I82.A19 Acute embolism and thrombosis of unspecified axillary vein; J44.0 Chronic obstructive pulmonary disease with (acute) lower respiratory infection; J98.11 Atelectasis; K56.7 Ileus, unspecified; K92.2 Gastrointestinal hemorrhage, unspecified; N39.0 Urinary tract infection, site not specified; B95.4 Other streptococcus as the cause of diseases classified elsewhere; D64.9 Anemia, unspecified; D72.828 Other elevated white blood cell count; E03.9 Hypothyroidism, unspecified; E78.5 Hyperlipidemia, unspecified; E87.6 Hypokalemia; F32.9 Major depressive disorder, single episode, unspecified; I11.0 Hypertensive heart disease with heart failure; I25.10 Atherosclerotic heart disease of native coronary artery without angina pectoris; I48.0 Paroxysmal atrial fibrillation; K76.89 Other specified diseases of liver; R53.81 Other malaise; R73.9 Hyperglycemia, unspecified; Z85.038 Personal history of other malignant neoplasm of large intestine
CPT/HCPCS: 36415; 36556; 36600; 74018; 93458; 96374; 96375; 99291; C9600; J3490; J7121; 71045; 80047; 80048; 80053; 81001; 82040; 82330; 82803; 82962; 83036; 83735; 84100; 84132; 84443; 84484; 84550; 85025; 85520; 85610; 85730; 87040; 87070; 87077; 87081; 87086; 87186; 87205; 93005; 93306; 94002; 94003; 94640; 99156; 99157; C1769; C1894; G0378; J0295; J0583; J0690; J0712; J1265; J1644; J1650; J1940; J2250; J2704; J3010; J3475; J3480; J7060; C1725; C1874; C1887; J0282; J1815; J2060; J2370; J7040; J7050; J7120; Q9967